=== PATIENT | female | born 1980 | race Caucasian/White ===

== ENCOUNTER 2021-12-01 14:06 | Emergency (ER) | payer OTHER ==
[2021-12-01] MEDS ORDERED: ACETAMINOPHEN TAB 325 MG TAB PO STA (14:49)
[2021-12-01] MEDS ORDERED: OXYMETAZOLINE 0.05% NASL SPRAY 1 SPRAY BOTTLE NASAL STA (14:50)
--- NOTE | 2021-12-01 14:57 | ED ---
General Adult HPI - General Chief complaint: Upper Respiratory Infection Stated complaint: Cough,Upper Respiratory Infection Time Seen by Provider: 12/01/21 14:30 Source: patient, RN notes reviewed, old records reviewed Mode of arrival: ambulatory Limitations: no limitations - History of Present Illness Initial comments: This is a well-appearing 40-year-old female, alert and oriented 4, presents to the emergency room with upper respiratory congestion with nasal drainage since November 13. She states she has not been vaccinated against coronavirus. She has not had a test. She denies any fevers but states that at times she does feel chilled. She does have a history of asthma, no other medical problems. No medications on a daily basis. -: week(s) (2 11/25) Location: head (sinus congestion), chest Severity scale (1-10): 5 Quality: other (tight) Consistency: intermittent Improves with: none Worsens with: other (cough) Associated Symptoms: cough, fever/chills, loss of appetite, other (nasal congestion) Treatments Prior to Arrival: none - Related Data Home Medications Medication Instructions Recorded Confirmed Albuterol Inhaler (Mhu) [Ventolin 2 puff INHALATION RT-QID PRN 07/03/16 07/03/16 Hfa Inhaler (Mhu)] Loratadine [Claritin] 10 mg PO DAILY 07/03/16 07/03/16 Previous Rx's Medication Instructions Recorded Ondansetron [Zofran ODT] 8 mg PO Q8HR PRN #12 tab 07/04/16 traMADol HCl [Ultram] 50 - 100 mg PO Q6H PRN #15 tab 07/04/16 predniSONE 50 mg PO DAILY #5 tab 12/01/21 Allergies Allergy/AdvReac Type Severity Reaction Status Date / Time phenobarbital Allergy Swelling Verified 12/01/21 14:11 venom-honey bee Allergy Swelling Verified 12/01/21 14:11 [bee venom (honey bee)] Review of Systems ROS Statement: Those systems with pertinent positive or pertinent negative responses have been documented in the HPI. ROS Other: All systems not noted in ROS Statement are negative. Past Medical History Past Medical History: Asthma History of Any Multi-Drug Resistant Organisms: None Reported Additional Past Surgical History / Comment(s): COMPLEX MASS TO OVARIES Past Psychological History: No Psychological Hx Reported Smoking Status: Current every day smoker Past Alcohol Use History: Occasional Past Drug Use History: None Reported General Exam Limitations: no limitations General appearance: alert, in no apparent distress Head exam: Present: atraumatic, normocephalic, normal inspection Eye exam: Present: normal appearance, PERRL, EOMI. Absent: scleral icterus, conjunctival injection, nystagmus, periorbital swelling, periorbital tenderness Pupils: Present: normal accommodation ENT exam: Present: normal exam, normal oropharynx, mucous membranes moist Neck exam: Present: normal inspection, full ROM, lymphadenopathy (right anterior cervical chain). Absent: tenderness, meningismus, thyromegaly Respiratory exam: Present: normal lung sounds bilaterally. Absent: respiratory distress, wheezes, rales, rhonchi, stridor, chest wall tenderness, accessory muscle use, decreased breath sounds Cardiovascular Exam: Present: regular rate, normal rhythm, normal heart sounds. Absent: systolic murmur, diastolic murmur, rubs, gallop, clicks, JVD GI/Abdominal exam: Present: soft, normal bowel sounds. Absent: distended, tenderness, guarding, rebound, rigid Extremities exam: Present: normal inspection, full ROM, normal capillary refill. Absent: tenderness, pedal edema, joint swelling, calf tenderness Back exam: Present: full ROM. Absent: tenderness, CVA tenderness (R), CVA tenderness (L), rash noted Neurological exam: Present: alert, oriented X3 Psychiatric exam: Present: normal affect, normal mood Skin exam: Present: warm, dry, intact, normal color. Absent: rash, cyanosis, diaphoretic Course Vital Signs 12/01/21 12/01/21 12/01/21 14:08 16:30 17:35 Temperature 98.6 F 99.1 F Pulse Rate 98 99 Respiratory 22 20 18 Rate Blood Pressure 174/94 150/96 O2 Sat by Pulse 96 97 Oximetry Medical Decision Making - Medical Decision Making 40-year-old female, presents with upper respiratory congestion and nasal drainage since November 13. She has not been vaccinated against coronavirus. She does have a history of asthma does not take any medications on a daily basis however has been using her albuterol inhaler more often. She is afebrile in the emergency room with an oxygen saturation of 96% on room air, she is in no acute distress. Chest x-ray negative. Coronavirus swab is positive. She was directed to self quarantine for 10 days from symptom onset, take vitamin C vitamin D and zinc [id number]. Follow up with primary care doctor return to emergency room for any worsening symptoms. - Lab Data Lab Results 12/01/21 Range/Units 15:25 Influenza Type A (PCR) Not Detected (Not Detectd) Influenza Type B (PCR) Not Detected (Not Detectd) RSV (PCR) Not Detected (Not Detectd) SARS-CoV-2 (PCR) Detected A (Not Detectd) Disposition Clinical Impression: COVID-19 Disposition: HOME SELF-CARE Additional Instructions: Increase your fluid intake, take vitamin C, vitamin D and zinc [id number] for immune health. Self quarantine for 10 days from symptom onset and 24 hours without fever. If you have no symptoms after the first 5 days, you can go into public with just a mask for the additional 5 days. Return to the emergency room with any new or worsening symptoms. Prescriptions: predniSONE 50 mg PO DAILY #5 tab Is patient prescribed a controlled substance at d/c from ED?: No Referrals: None,Stated [Primary Care Provider] - 1-2 days Time of Disposition: 17:07
[2021-12-01] MEDS ORDERED: HYDROcodone/APAP 5-325MG 1 EACH TAB PO STA (16:15)
--- NOTE | 2021-12-01 16:47 | XR ---
EXAMINATION TYPE: XR chest 2V DATE OF EXAM: 12/01/2021 COMPARISON: NONE HISTORY: Cough and congestion TECHNIQUE: 2 views FINDINGS: Heart and mediastinum are normal. Lungs are clear. Diaphragm is normal. Bony thorax appears normal. IMPRESSION: Normal chest.
[2021-12-01 17:39] VITALS: BP 150/96; PULSE 99; RESP 18; TEMP 99.1
== END 2021-12-01 17:35 | disposition home or self-care (01) ==
LOC: EC 14:06
DX: U07.1 COVID-19 (principal); J45.909 Unspecified asthma, uncomplicated; F17.200 Nicotine dependence, unspecified, uncomplicated; Z72.89 Other problems related to lifestyle; Z79.51 Long term (current) use of inhaled steroids
CPT/HCPCS: 71046; 87636; 99283

== ENCOUNTER → 2025-02-08 | Outpatient (CLI) | payer OTHER ==
--- NOTE | 2025-02-08 10:47 | CT ---
EXAMINATION TYPE: CT chest w con DATE OF EXAM: 02/08/2025 COMPARISON: CLINICAL INDICATION: Female, 44 years old with history of R05.3 CHRONIC COUGH; PHH, Chronic cough. TECHNIQUE: CT scan of the chest is performed with IV Contrast, patient injected with 100 mL of Isovue 300. MIP Images are created on CT scanner and reviewed. 3D reconstructed images are created on an independent workstation and reviewed. CT DLP: 387.[address] CTDI: mGy Automated exposure control for dose reduction was used. FINDINGS: LUNGS: Scattered pulmonary nodularity measuring less than 5 mm with 2 nodules seen within the right u pper lobe approximately 3 nodules seen scattered within the left upper lobe. No airspace consolidatio n. No masses appreciated. There is no pleural effusion or pneumothorax seen. The tracheobronchial tr ee is patent. MEDIASTINUM: There are no greater than 1 cm hilar or mediastinal lymph nodes. No pericardial effusi on is seen. OTHER: No additional significant abnormality is seen. IMPRESSION: Scattered pulmonary nodularity all measuring less than 5 mm. No evidence for infiltrate or mass. Follow-up recommendations for incidental pulmonary nodules are per [employer] [place] [employer] or [place]. [facility], , 02/08/2025 10:45 AM
== END | disposition home or self-care (01) ==
LOC: RADCTMAIN 10:20
PROVIDERS: ATTEND Internal Medicine
DX: R91.8 Other nonspecific abnormal finding of lung field (principal); R05.3 Chronic cough
CPT/HCPCS: 71260; Q9967